=== PATIENT | female | born 1985 | race Two or more races ===

== ENCOUNTER 2021-08-27 17:58 | Emergency (ER) | payer OTHER ==
[~2021-08-27] VITALS: Ht 162.6 cm; Wt 72.6 kg
[2021-08-27 18:37] VITALS: BP 120/69
[2021-08-27] MEDS ORDERED: TRAM-297 PO (22:04)
== END 2021-08-27 23:10 | disposition home or self-care (01) ==
LOC: ER 17:58
DX: S20.212A Contusion of left front wall of thorax, initial encounter (principal); S70.02XA Contusion of left hip, initial encounter; S09.90XA Unspecified injury of head, initial encounter; Z90.49 Acquired absence of other specified parts of digestive tract; V49.9XXA Car occupant (driver) (passenger) injured in unspecified traffic accident, initial encounter; Y93.89 Activity, other specified; Y92.410 Unspecified street and highway as the place of occurrence of the external cause; Y99.8 Other external cause status
CPT/HCPCS: 70450; 70486; 71250; 74176